=== PATIENT | male | born 1940 | race African-American/Black ===

== ENCOUNTER 2021-10-28 12:09 | Emergency (ER) | payer OTHER ==
[~2021-10-28] VITALS: Ht 182.9 cm; Wt 91.0 kg
[2021-10-28 13:23] LABS: HEMATOCRIT. 32.3 % (42.0-52.0); HEMOGLOBIN. 10.8 g/dL (14.0-18.0); MEAN CORPUSCULAR HEMOGLOBIN 29.4 pg (28.0-32.0); MEAN CORPUSCULAR VOLUME 88.2 fL (80.0-94.0); MEAN PLATELET VOLUME 7.6 fl (7.4-10.4); PLATELET 152 x1000/uL (130-400); RED BLOOD CELL COUNT 3.67 mill/uL (4.7-6.1); RED CELL DISTRIBUTION WIDTH 16.1 % (11.6-14.6)
[2021-10-28 14:03] LABS: PLATELET ESTIMATE NORMAL
[2021-10-28 14:06] LABS: CHLORIDE 110 mEq/L (98-107)
[2021-10-28 14:13] LABS: ETHANOL BLOOD < 10 mg/dL
[2021-10-28] MEDS ORDERED: SODIUM CHLORIDE 0.9% 1,000 ML IV ONE (14:30)
[2021-10-28 14:47] LABS: *AMPHETAMINES SCREEN URINE NEGATIVE (NEGATIVE); *BARBITURATES SCREEN URINE NEGATIVE (NEGATIVE); *BENZODIAZEPINES SCREEN URINE NEGATIVE (NEGATIVE); *COCAINE SCREEN URINE NEGATIVE (NEGATIVE)
[2021-10-28 14:48] LABS: CANNABINOID URINE SCREEN NEGATIVE (NEGATIVE); METHADONE URINE SCREEN NEGATIVE (NEGATIVE); OPIATES URINE SCREEN NEGATIVE (NEGATIVE); PHENCYCLIDINE URINE SCREEN NEGATIVE (NEGATIVE)
[2021-10-28 22:00] VITALS: BP 127/70
== END 2021-10-28 22:15 | disposition short-term general hospital (02) ==
LOC: ER 12:09 → CANBEDREQ 16:45 → ER 22:15
DX: G93.40 Encephalopathy, unspecified (principal); N28.9 Disorder of kidney and ureter, unspecified; R55 Syncope and collapse; E11.9 Type 2 diabetes mellitus without complications; E78.00 Pure hypercholesterolemia, unspecified; Z20.822 Contact with and (suspected) exposure to COVID-19; Z88.6 Allergy status to analgesic agent
CPT/HCPCS: 36415; 70450; 71045; 80053; 80305; 80320; 83880; 84484; 85025; 87426; 93005; 96360; 99291; J7030; G0480

== ENCOUNTER 2022-09-14 13:39 | Emergency (ER) | payer OTHER ==
[~2022-09-14] VITALS: Ht 188 cm; Wt 88.0 kg
[2022-09-14] MEDS ORDERED: SODIUM CHLORIDE 0.9% 1,000 ML IV ONE (14:30)
[2022-09-14 14:58] LABS: CHLORIDE 108 mEq/L (98-107)
[2022-09-14 15:18] LABS: BASOPHILS % 0.5 % (0.0-2.0); EOSINOPHILS % 0.6 % (0.0-5.0); HEMATOCRIT. 28.4 % (42.0-52.0); HEMOGLOBIN. 9.5 g/dL (14.0-18.0); LYMPHOCYTES % 11.8 % (20.0-50.0); MEAN CORPUSCULAR VOLUME 90.1 fL (80.0-94.0); MEAN PLATELET VOLUME 8.2 fl (7.4-10.4); MONOCYTES % 6.3 % (2.0-8.0); NEUTROPHILS % 80.8 % (40.0-76.0); PLATELET 142 x1000/uL (130-400); RED BLOOD CELL COUNT 3.15 mill/uL (4.7-6.1); RED CELL DISTRIBUTION WIDTH 15.8 % (11.6-14.6)
[2022-09-14] MEDS ORDERED: ASPIRIN 325MG EC TABLET PO ONE (18:00)
[2022-09-14 20:52] VITALS: BP 132/82
== END 2022-09-14 21:34 | disposition short-term general hospital (02) ==
LOC: ER 13:39 → CANBEDREQ 18:18 → ER 21:34
DX: R47.81 Slurred speech (principal); R41.82 Altered mental status, unspecified; E11.22 Type 2 diabetes mellitus with diabetic chronic kidney disease; N18.9 Chronic kidney disease, unspecified; E78.00 Pure hypercholesterolemia, unspecified; Z88.8 Allergy status to other drugs, medicaments and biological substances
CPT/HCPCS: 36415; 70450; 71045; 80053; 83880; 84484; 85025; 93005; 96360; 96361; 99285; J7030

== ENCOUNTER 2022-10-26 20:19 | Inpatient (IN) | payer OTHER ==
[~2022-10-26] VITALS: Ht 370.8 cm; Wt 97.1 kg
[2022-10-26] MEDS ORDERED: CEFTRIAXONE SODIUM 1 G/VIAL IM ONE (20:45)
[2022-10-26] MEDS ORDERED: SODIUM CHLORIDE 0.9% 1000ML BAG (SEPSIS BOLUS) IV ONE (20:45)
[2022-10-26] MEDS ORDERED: CEFTRIAXONE 1 G PREMIX 50 ML IV NR (22:30)
[2022-10-26 23:22] LABS: HEMATOCRIT. 29.7 % (42.0-52.0); HEMOGLOBIN. 9.5 g/dL (14.0-18.0); MEAN CORPUSCULAR HEMOGLOBIN 28.9 pg (28.0-32.0); MEAN CORPUSCULAR VOLUME 90.1 fL (80.0-94.0); PLATELET 107 x1000/uL (130-400); RED BLOOD CELL COUNT 3.29 mill/uL (4.7-6.1); RED CELL DISTRIBUTION WIDTH 16.9 % (11.6-14.6)
[2022-10-26 23:37] LABS: CHLORIDE 111 mEq/L (98-107)
[2022-10-26 23:47] LABS: ETHANOL BLOOD < 10 mg/dL
[2022-10-27] MEDS ORDERED: FUROSEMIDE 100MG/10ML VIAL IV ONE
[2022-10-27] MEDS ORDERED: CALCIUM GLUCONATE 1,000 MG in DEXT 5% WATER 100 ML IV ONE ×2
[2022-10-27] MEDS ORDERED: SODIUM BICARBONATE 8.4% 1 MEQ/ML 50ML SYR IV ONE
[2022-10-27] MEDS ORDERED: INSULIN REGULAR (HUMULIN R) 300UNITS/3ML VIAL IV ONE
[2022-10-27] MEDS ORDERED: CALCIUM GLUCONATE 100MG/ML 10ML VIAL IV NR (00:15)
[2022-10-27] MEDS: ALBUTEROL (0.083%) 2.5MG/3ML NEB HHN SCH ×5 (00:22→02:39)
[2022-10-27 01:05] LABS: CHLORIDE 110 mEq/L (98-107)
[2022-10-27] MEDS ORDERED: SODIUM BICARBONATE 8.4% 1 MEQ/ML 50ML SYR IV NR (01:45)
[2022-10-27] MEDS ORDERED: INSULIN REGULAR (HUMULIN R) 300UNITS/3ML VIAL IV NR (01:45)
[2022-10-27] MEDS ORDERED: DEXTROSE 50% WATER 50ML SYRINGE IV ONE ×2 (01:45)
[2022-10-27 03:39] LABS: PLATELET ESTIMATE DECREASED
[2022-10-27 09:00] VITALS: BP 128/67
[2022-10-27] MEDS ORDERED: ENOXAPARIN 40MG/0.4ML SYR SUBCUT SCH (09:00)
[2022-10-27] MEDS ORDERED: ONDANSETRON HCL 4MG/2ML INJ IV PRN (09:30)
[2022-10-27] MEDS ORDERED: MAGNESIUM/ALUMINUM HYDROXIDE/SIMETHICONE 30ML UDC PO PRN (09:30)
[2022-10-27] MEDS ORDERED: GUAIFENESIN 200MG/10ML SUGAR FREE UDC PO PRN (09:30)
[2022-10-27] MEDS ORDERED: TRAMADOL 50MG TABLET PO PRN (09:30)
[2022-10-27] MEDS ORDERED: DOCUSATE SODIUM 100MG CAPSULE PO PRN (09:30)
[2022-10-27] MEDS ORDERED: ACETAMINOPHEN 325MG TABLET PO PRN (09:30)
[2022-10-27] MEDS ORDERED: SODIUM POLYSTYRENE SULFONATE 15 G/60 ML BOT PO NR (09:42)
[2022-10-27] MEDS ORDERED: NALOXONE HCL 0.4MG/ML VIAL IV PRN (09:45)
[2022-10-27] MEDS: THIAMINE HCL 100MG TABLET PO SCH (11:42)
[2022-10-27] MEDS: MULTIVITAMINS,THER W-MINERALS TABLET PO SCH (11:43)
[2022-10-27] MEDS: SODIUM CHLORIDE 0.45% 1,000 ML IV SCH ×2 (11:44→20:36)
[2022-10-27] MEDS: ENOXAPARIN 30MG/0.3ML SYR SUBCUT SCH (11:44)
[2022-10-27 12:00] VITALS: BP 124/98
[2022-10-27 14:41] LABS: CLARITY URINE CLEAR (CLEAR); COLOR URINE YELLOW (YELLOW); KETONES URINE NEGATIVE (NEGATIVE); LEUKOCYTE ESTERASE URINE TRACE (NEGATIVE); NITRITE URINE NEGATIVE (NEGATIVE); OCCULT BLOOD URINE NEGATIVE (NEGATIVE); PROTEIN URINE TRACE (NEGATIVE); SPECIFIC GRAVITY URINE 1.023 (1.005-1.030); UROBILINOGEN URINE 0.2 E.U./dL (0.2-1.0)
[2022-10-27 15:35] LABS: *AMPHETAMINES SCREEN URINE NEGATIVE (NEGATIVE); *BARBITURATES SCREEN URINE NEGATIVE (NEGATIVE); *BENZODIAZEPINES SCREEN URINE NEGATIVE (NEGATIVE); *COCAINE SCREEN URINE NEGATIVE (NEGATIVE); CANNABINOID URINE SCREEN NEGATIVE (NEGATIVE); METHADONE URINE SCREEN NEGATIVE (NEGATIVE); OPIATES URINE SCREEN NEGATIVE (NEGATIVE); PHENCYCLIDINE URINE SCREEN NEGATIVE (NEGATIVE)
[2022-10-27 16:00] VITALS: BP 129/77
[2022-10-27 20:00] VITALS: BP 143/83
[2022-10-28] VITALS: BP 121/83
[2022-10-28 00:04] LABS: CREATINE KINASE 754 IU/L (39-308)
[2022-10-28 04:00] VITALS: BP 143/94
[2022-10-28 08:00] VITALS: BP 125/68
[2022-10-28] MEDS: THIAMINE HCL 100MG TABLET PO SCH (10:27)
[2022-10-28] MEDS: ENOXAPARIN 30MG/0.3ML SYR SUBCUT SCH (10:27)
[2022-10-28] MEDS: TAMSULOSIN HCL 0.4MG SR CAPSULE PO SCH (10:27)
[2022-10-28] MEDS: MULTIVITAMINS,THER W-MINERALS TABLET PO SCH (10:28)
[2022-10-28] MEDS: FOLIC ACID 1MG TABLET PO SCH (10:29)
[2022-10-28] MEDS: AMLODIPINE 10MG TABLET PO SCH (10:39)
[2022-10-28] MEDS: SODIUM CHLORIDE 0.45% 1,000 ML IV SCH ×2 (10:48→22:51)
[2022-10-28 10:56] LABS: HEMATOCRIT. 32.2 % (42.0-52.0); HEMOGLOBIN. 10.3 g/dL (14.0-18.0); MEAN CORPUSCULAR HEMOGLOBIN 28.7 pg (28.0-32.0); MEAN CORPUSCULAR VOLUME 89.8 fL (80.0-94.0); MEAN PLATELET VOLUME 8.5 fl (7.4-10.4); PLATELET 92 x1000/uL (130-400); RED BLOOD CELL COUNT 3.58 mill/uL (4.7-6.1); RED CELL DISTRIBUTION WIDTH 16.8 % (11.6-14.6)
[2022-10-28 11:06] LABS: CHLORIDE 117 mEq/L (98-107)
[2022-10-28 11:13] LABS: HDL CHOLESTEROL 102 mg/dL (40-59); LDL CHOLESTEROL 19 mg/dL (5-100)
[2022-10-28 12:00] VITALS: BP 145/84
[2022-10-28 16:00] VITALS: BP 130/54
[2022-10-28 16:42] LABS: PLATELET ESTIMATE DECREASED
[2022-10-28] MEDS ORDERED: SODIUM POLYSTYRENE SULFONATE 15 G/60 ML BOT PO NR (18:45)
[2022-10-28 20:00] VITALS: BP 116/69
[2022-10-29] VITALS: BP 120/73
[2022-10-29 04:00] VITALS: BP 139/70
[2022-10-29 07:58] VITALS: BP 149/71
[2022-10-29] MEDS: TAMSULOSIN HCL 0.4MG SR CAPSULE PO SCH (08:41)
[2022-10-29] MEDS: MULTIVITAMINS,THER W-MINERALS TABLET PO SCH (08:41)
[2022-10-29] MEDS: THIAMINE HCL 100MG TABLET PO SCH (08:41)
[2022-10-29] MEDS: FOLIC ACID 1MG TABLET PO SCH (08:41)
[2022-10-29] MEDS: ENOXAPARIN 30MG/0.3ML SYR SUBCUT SCH (08:42)
[2022-10-29] MEDS ORDERED: SODIUM POLYSTYRENE SULFONATE 15 G/60 ML BOT PO SCH (08:45)
[2022-10-29] MEDS ORDERED: SODIUM POLYSTYRENE SULFONATE 15 G/60 ML BOT PO NR (09:30)
[2022-10-29] MEDS: AMLODIPINE 10MG TABLET PO SCH (09:30)
[2022-10-29 12:00] VITALS: BP 132/71
[2022-10-29] MEDS: SODIUM CHLORIDE 0.45% 1,000 ML IV SCH (12:21)
[2022-10-29 12:22] LABS: HEMATOCRIT. 30.2 % (42.0-52.0); HEMOGLOBIN. 9.7 g/dL (14.0-18.0); MEAN CORPUSCULAR HEMOGLOBIN 28.7 pg (28.0-32.0); MEAN CORPUSCULAR VOLUME 89.2 fL (80.0-94.0); MEAN PLATELET VOLUME 8.1 fl (7.4-10.4); PLATELET 93 x1000/uL (130-400); RED BLOOD CELL COUNT 3.38 mill/uL (4.7-6.1); RED CELL DISTRIBUTION WIDTH 16.9 % (11.6-14.6)
[2022-10-29 14:04] VITALS: BP 132/71
[2022-10-29 16:19] LABS: NUCLEATED RED BLOOD CELLS 2 /100 WBC; PLATELET ESTIMATE DECREASED
== END 2022-10-29 15:22 | disposition short-term general hospital (02) | DRG 640 ==
LOC: ER 20:19 → MICUSO 23:56 → 7EST 10-27 09:52
PROVIDERS: ADMIT Hospitalist; ATTEND Hospitalist
DX: E87.5 Hyperkalemia (principal); N17.0 Acute kidney failure with tubular necrosis; E44.1 Mild protein-calorie malnutrition; Z68.1 Body mass index [BMI] 19.9 or less, adult; R55 Syncope and collapse; I12.9 Hypertensive chronic kidney disease with stage 1 through stage 4 chronic kidney disease, or unspecified chronic kidney disease; D64.9 Anemia, unspecified; N18.30 Chronic kidney disease, stage 3 unspecified; D63.8 Anemia in other chronic diseases classified elsewhere; Z20.822 Contact with and (suspected) exposure to COVID-19
CPT/HCPCS: 36415; 71045; 76770; 80048; 80053; 80061; 80305; 80320; 81003; 82550; 83605; 83880; 85025; 87426; 93005; 93970; 94640; 97116; 97162; 97530; 99285; C1893; J0610; J0696; J1650; J1815; J3490; J7030; J7060; A4315; G0480

== ENCOUNTER 2022-11-24 07:59 | Inpatient (IN) | payer MEDICARE, OTHER ==
[~2022-11-24] VITALS: Ht 182.9 cm; Wt 94.0 kg
[2022-11-24 08:33] LABS: HEMATOCRIT. 34.2 % (42.0-52.0); HEMOGLOBIN. 10.6 g/dL (14.0-18.0); MEAN CORPUSCULAR HEMOGLOBIN 29.1 pg (28.0-32.0); MEAN CORPUSCULAR VOLUME 94.3 fL (80.0-94.0); MEAN PLATELET VOLUME 9.6 fl (7.4-10.4); PLATELET 313 x1000/uL (130-400); RED BLOOD CELL COUNT 3.62 mill/uL (4.7-6.1); RED CELL DISTRIBUTION WIDTH 18.1 % (11.6-14.6)
[2022-11-24 09:22] LABS: PLATELET ESTIMATE NORMAL
[2022-11-24 09:39] LABS: CHLORIDE 124 mEq/L (98-107)
[2022-11-24 09:40] LABS: INR 1.2; PROTHROMBIN TIME 12.4 sec (9.6-11.0)
[2022-11-24 09:49] LABS: ETHANOL BLOOD < 10 mg/dL
[2022-11-24 10:13] LABS: CLARITY URINE CLOUDY (CLEAR); COLOR URINE YELLOW (YELLOW); KETONES URINE NEGATIVE (NEGATIVE); LEUKOCYTE ESTERASE URINE NEGATIVE (NEGATIVE); NITRITE URINE NEGATIVE (NEGATIVE); OCCULT BLOOD URINE 1+ (NEGATIVE); PROTEIN URINE 1+ (NEGATIVE); SPECIFIC GRAVITY URINE 1.013 (1.005-1.030); UROBILINOGEN URINE 0.2 E.U./dL (0.2-1.0)
[2022-11-24 10:34] LABS: *AMPHETAMINES SCREEN URINE NEGATIVE (NEGATIVE); *BARBITURATES SCREEN URINE NEGATIVE (NEGATIVE); *BENZODIAZEPINES SCREEN URINE NEGATIVE (NEGATIVE); *COCAINE SCREEN URINE NEGATIVE (NEGATIVE); CANNABINOID URINE SCREEN NEGATIVE (NEGATIVE); METHADONE URINE SCREEN NEGATIVE (NEGATIVE); OPIATES URINE SCREEN PRESUMTIVE POSITIVE (NEGATIVE); PHENCYCLIDINE URINE SCREEN NEGATIVE (NEGATIVE)
[2022-11-24] MEDS ORDERED: VANCOMYCIN 1G PREMIX 200 ML IV SCH (10:45)
[2022-11-24] MEDS ORDERED: PIPERACILLIN/TAZOBACTAM 3.375 G in DEXTROSE 5% WATER 50 ML IV SCH (10:45)
[2022-11-24] MEDS ORDERED: DEXAMETHASONE 10 MG/ML VIAL IV SCH (10:45)
[2022-11-24] MEDS ORDERED: ALBUTEROL (0.5%) 2.5MG/0.5ML NEB HHN SCH (10:45)
[2022-11-24] MEDS ORDERED: SODIUM CHLORIDE 0.9% 500 ML IV SCH (10:45)
[2022-11-24] MEDS ORDERED: SODIUM CHLORIDE 0.9% 500 ML IV NR (13:30)
[2022-11-24 22:24] VITALS: BP 144/59
[2022-11-24 22:39] VITALS: BP 144/59
[2022-11-25] VITALS: BP 151/72
[2022-11-25] MEDS ORDERED: ACETAMINOPHEN 650MG/20.3ML UDC PO PRN
[2022-11-25] MEDS ORDERED: ACETAMINOPHEN 650MG SUPP PR PRN
[2022-11-25] MEDS ORDERED: DEXT 5%/0.45% NACL 1000ML 1,000 ML IV SCH (00:30)
[2022-11-25] MEDS ORDERED: VANCOMYCIN 1G PREMIX 200 ML IV NR (01:00)
[2022-11-25 04:00] VITALS: BP 159/72
[2022-11-25 08:28] VITALS: BP 158/96
[2022-11-25] MEDS: PIPERACILLIN/TAZOBACTAM 3.375 G in DEXTROSE 5% WATER 50 ML IV SCH ×2 (08:55→20:42)
[2022-11-25] MEDS ORDERED: ONDANSETRON HCL 4MG/2ML INJ IV PRN (10:15)
[2022-11-25] MEDS: DEXTROSE 5% WATER 1,000 ML IV SCH (11:26)
[2022-11-25 12:00] VITALS: BP 158/54
[2022-11-25 12:25] LABS: HEMATOCRIT. 31.8 % (42.0-52.0); HEMOGLOBIN. 9.8 g/dL (14.0-18.0); MEAN CORPUSCULAR HEMOGLOBIN 28.6 pg (28.0-32.0); MEAN CORPUSCULAR VOLUME 92.9 fL (80.0-94.0); MEAN PLATELET VOLUME 9.4 fl (7.4-10.4); PLATELET 252 x1000/uL (130-400); RED BLOOD CELL COUNT 3.43 mill/uL (4.7-6.1); RED CELL DISTRIBUTION WIDTH 17.8 % (11.6-14.6)
[2022-11-25 12:52] LABS: NUCLEATED RED BLOOD CELLS 2 /100 WBC
[2022-11-25 12:54] LABS: PLATELET ESTIMATE NORMAL
[2022-11-25 13:26] LABS: BG BASE EXCESS -4.6 mmol/L (-2.0-2.0); BG DEOXYHEMOGLOBIN 1.2 % (0.0-5.0); BG FRACTION INSPIRED OXYGEN 100; BG HCO3 ACT 22.4 mmol/L (22.0-26.0); BG METHEMOGLOBIN 0.3 % (0.0-1.5); BG OXYGEN SATURATION 98.8 % (92.0-98.5); BG OXYHEMOGLOBIN 98.5 % (94.0-97.0); BG PH 7.277 (7.350-7.450); BG SAMPLE SITE RIGHT RADIAL; BG TOTAL HEMOGLOBIN 11.9 g/dL (12.0-18.0); BG VENT MODE MASK - NRB
[2022-11-25] MEDS ORDERED: DEXTROSE 50% WATER 50ML SYRINGE IV NR (13:30)
[2022-11-25] MEDS ORDERED: IPRATROPIUM/ALBUTEROL 0.5-3(2.5)MG/3ML NEB HHN PRN (13:30)
[2022-11-25] MEDS ORDERED: SODIUM BICARBONATE 8.4% 1 MEQ/ML 50ML SYR IV NR (13:30)
[2022-11-25] MEDS ORDERED: INSULIN REGULAR (HUMULIN R) 300UNITS/3ML VIAL IV NR (13:30)
[2022-11-25] MEDS ORDERED: IPRATROPIUM BROMIDE (0.02%) 0.5MG/2.5ML NEB HHN PRN (13:45)
[2022-11-25] MEDS ORDERED: ALBUTEROL (0.083%) 2.5MG/3ML NEB HHN PRN (13:45)
[2022-11-25] MEDS ORDERED: IPRATROPIUM/ALBUTEROL 0.5-3(2.5)MG/3ML NEB HHN SCH (14:00)
[2022-11-25] MEDS ORDERED: CALCIUM GLUCONATE 1GM PREMIX 50 ML IV NR (15:00)
[2022-11-25] MEDS: IPRATROPIUM BROMIDE (0.02%) 0.5MG/2.5ML NEB HHN SCH ×2 (15:50→23:37)
[2022-11-25] MEDS: ALBUTEROL (0.083%) 2.5MG/3ML NEB HHN SCH ×2 (15:50→23:38)
[2022-11-25 16:05] VITALS: BP 130/58
[2022-11-25 20:00] VITALS: BP 143/77
[2022-11-25] MEDS ORDERED: SODIUM POLYSTYRENE SULFONATE 15 G/60 ML BOT PR NR (21:15)
[2022-11-26] VITALS: BP 144/73
[2022-11-26 04:00] VITALS: BP 149/59
[2022-11-26] MEDS: DEXTROSE 5% WATER 1,000 ML IV SCH ×2 (05:14→16:40)
[2022-11-26 07:20] LABS: HEMATOCRIT. 30.8 % (42.0-52.0); HEMOGLOBIN. 9.7 g/dL (14.0-18.0); MEAN CORPUSCULAR HEMOGLOBIN 29.2 pg (28.0-32.0); MEAN CORPUSCULAR VOLUME 92.5 fL (80.0-94.0); MEAN PLATELET VOLUME 9.5 fl (7.4-10.4); PLATELET 259 x1000/uL (130-400); RED BLOOD CELL COUNT 3.33 mill/uL (4.7-6.1)
[2022-11-26 08:04] VITALS: BP 152/60
[2022-11-26] MEDS: IPRATROPIUM BROMIDE (0.02%) 0.5MG/2.5ML NEB HHN SCH ×3 (08:28→23:37)
[2022-11-26] MEDS: ALBUTEROL (0.083%) 2.5MG/3ML NEB HHN SCH ×3 (08:28→23:37)
[2022-11-26] MEDS ORDERED: DEXTROSE 50% WATER 50ML SYRINGE IV ONE (08:45)
[2022-11-26] MEDS: PIPERACILLIN/TAZOBACTAM 3.375 G in DEXTROSE 5% WATER 50 ML IV SCH ×2 (08:46→21:06)
[2022-11-26] MEDS ORDERED: SODIUM BICARBONATE 8.4% 1 MEQ/ML 50ML SYR IV ONE (09:00)
[2022-11-26] MEDS ORDERED: INSULIN REGULAR (HUMULIN R) 300UNITS/3ML VIAL IV ONE (09:00)
[2022-11-26] MEDS: CALCIUM GLUCONATE 1GM PREMIX 50 ML IV SCH (09:34)
[2022-11-26 12:00] VITALS: BP 140/76
[2022-11-26 14:34] LABS: PLATELET ESTIMATE NORMAL
[2022-11-26 16:00] VITALS: BP 120/76
[2022-11-26 20:00] VITALS: BP 132/66
[2022-11-27] VITALS: BP 117/56
[2022-11-27] MEDS: DEXTROSE 5% WATER 1,000 ML IV SCH ×2 (01:15→16:09)
[2022-11-27 04:00] VITALS: BP 131/53
[2022-11-27 06:36] LABS: HEMATOCRIT. 34.4 % (42.0-52.0); HEMOGLOBIN. 10.7 g/dL (14.0-18.0); MEAN CORPUSCULAR HEMOGLOBIN 28.5 pg (28.0-32.0); MEAN CORPUSCULAR VOLUME 91.9 fL (80.0-94.0); MEAN PLATELET VOLUME 9.7 fl (7.4-10.4); PLATELET 329 x1000/uL (130-400); RED BLOOD CELL COUNT 3.75 mill/uL (4.7-6.1); RED CELL DISTRIBUTION WIDTH 18.2 % (11.6-14.6)
[2022-11-27 08:00] VITALS: BP 102/42
[2022-11-27 08:41] LABS: BG BASE EXCESS -4.7 mmol/L (-2.0-2.0); BG CARBOXYHEMOGLOBIN 0.1 % (0.5-1.5); BG FRACTION INSPIRED OXYGEN 100; BG HCO3 ACT 22.1 mmol/L (22.0-26.0); BG METHEMOGLOBIN 0.6 % (0.0-1.5); BG OXYHEMOGLOBIN 98.3 % (94.0-97.0); BG PH 7.281 (7.350-7.450); BG SAMPLE SITE LEFT BRACHIAL; BG TOTAL HEMOGLOBIN 11.3 g/dL (12.0-18.0); BG VENT MODE MASK - NRB
[2022-11-27] MEDS: ALBUTEROL (0.083%) 2.5MG/3ML NEB HHN SCH ×2 (09:06→14:36)
[2022-11-27] MEDS: IPRATROPIUM BROMIDE (0.02%) 0.5MG/2.5ML NEB HHN SCH ×2 (09:06→14:36)
[2022-11-27] MEDS: PIPERACILLIN/TAZOBACTAM 3.375 G in DEXTROSE 5% WATER 50 ML IV SCH ×2 (09:37→23:03)
[2022-11-27] MEDS: CALCIUM GLUCONATE 1GM PREMIX 50 ML IV SCH (09:37)
[2022-11-27 12:00] VITALS: BP 100/52
[2022-11-27 13:17] LABS: NUCLEATED RED BLOOD CELLS 1 /100 WBC
[2022-11-27 13:19] LABS: PLATELET ESTIMATE NORMAL
[2022-11-27 16:00] VITALS: BP 125/53
[2022-11-27] MEDS: MORPHINE SULFATE 2 MG/ML CPJ (NOT FOR IM USE) IV PRN (19:04)
[2022-11-27 20:00] VITALS: BP 116/52
[2022-11-28] VITALS: BP 131/68
[2022-11-28] MEDS: ALBUTEROL (0.083%) 2.5MG/3ML NEB HHN SCH ×4 (00:56→21:49)
[2022-11-28] MEDS: IPRATROPIUM BROMIDE (0.02%) 0.5MG/2.5ML NEB HHN SCH ×4 (00:56→21:49)
[2022-11-28 04:00] VITALS: BP 125/62
[2022-11-28] MEDS: DEXTROSE 5% WATER 1,000 ML IV SCH ×2 (05:04→18:16)
[2022-11-28 08:00] VITALS: BP 116/53
[2022-11-28] MEDS: PIPERACILLIN/TAZOBACTAM 3.375 G in DEXTROSE 5% WATER 50 ML IV SCH ×2 (09:23→22:30)
[2022-11-28 12:00] VITALS: BP 143/64
[2022-11-28 16:00] VITALS: BP 146/67
[2022-11-28 20:00] VITALS: BP 162/76
[2022-11-28] MEDS: MORPHINE SULFATE 2 MG/ML CPJ (NOT FOR IM USE) IV PRN (22:31)
[2022-11-29] VITALS: BP 175/79
[2022-11-29 04:00] VITALS: BP 137/64
[2022-11-29] MEDS: MORPHINE SULFATE 2 MG/ML CPJ (NOT FOR IM USE) IV PRN (04:52)
[2022-11-29 08:00] VITALS: BP 110/54
== END 2022-11-29 08:45 | DRG 871 ==
LOC: ER 08:07 → EDBEDREQ 10:49 → EDBEDREQSVC 10:49 → EDBEDREQTM 10:49 → 7EST 11:50 → EDBEDREQ 12:08 → EDBEDREQTM 12:08 → ENRESERV 19:15
PROVIDERS: ADMIT Internal Medicine; ATTEND Internal Medicine
DX: A41.9 Sepsis, unspecified organism (principal); E43 Unspecified severe protein-calorie malnutrition; G92.8 Other toxic encephalopathy; J69.0 Pneumonitis due to inhalation of food and vomit; J96.01 Acute respiratory failure with hypoxia; E87.0 Hyperosmolality and hypernatremia; N18.4 Chronic kidney disease, stage 4 (severe); I12.0 Hypertensive chronic kidney disease with stage 5 chronic kidney disease or end stage renal disease; N17.9 Acute kidney failure, unspecified; Z20.822 Contact with and (suspected) exposure to COVID-19; Z66 Do not resuscitate; E11.22 Type 2 diabetes mellitus with diabetic chronic kidney disease; D64.9 Anemia, unspecified; E87.5 Hyperkalemia; Z87.01 Personal history of pneumonia (recurrent); Z74.01 Bed confinement status; Z68.28 Body mass index [BMI] 28.0-28.9, adult
CPT/HCPCS: 36415; 36600; 71045; 80048; 80053; 80202; 80305; 80320; 81003; 82140; 82375; 82805; 83605; 83880; 84145; 84484; 85025; 87426; 87804; 93005; 93970; 94640; 99291; C9803; J0610; J1100; J1815; J2270; J2543; J3370; J3490; J7060; J7070; G0480